=== PATIENT | female | born 1940 | race Caucasian/White ===

== ENCOUNTER → 2016-11-18 | Outpatient (CLI) | payer MEDICARE ==
[~2016-11-18] MED LIST: ACETAM PO; ALLOPURINOL100 MG PO; BACITRACIN OIN TP; BENADRYL ALLERG25 M1 PO; CLOTRIMAZOLE 1%15 GM TP; DILAUDID2 MG PO; DIPHENOX/ATROPI1 TAB PO; HCTZ/LISINOPRIL1 TA3 PO; ISOSORBIDE DINI30 MG PO; KEFLEX 500MG.500 MG PO; LEVOTHYROXINE0.05 MG PO; LOMOTIL 0.025 M1 TAB OR; LOMOTIL 2.5MG.2.5 MG PO; LORTAB 5/500 501 TAB PO; LOVASTATIN40 MG PO; OMNICEF 300 MG300 MG PO; ONDANSETRON 4MG4 M1 PO; PANTOPRAZOLE SO20 MG PO; PRINIVIL10 MG PO; TRAMADOL 50MG T50 MG PO; TRAMADOL PO; TRAZODONE 50MG50 MG PO; XYLOCAINE2% TP; ZOFRAN4 MG PO
--- NOTE | 2016-11-23 20:25 | RADIOLOGY REPORT PS360 ---
DIG MAMM-SCREEN JOSE ANTONIO W/CAD CAD Screening COMPARISON: Digital mammograms 02/17/2016 and postbiopsy specimen radiographs 05/06/2016 INDICATION: There is no personal or family history of breast cancer. 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 R2 CAD reviewed. FINDINGS: Moderate diffuse scattered fibroglandular densities are seen throughout both breasts. There are multiple surgical clips lower inner quadrant left breast with mild post lumpectomy scarring noted. There are multiple scattered benign-appearing calcifications in both breasts along with arterial calcification in each breast as well. There is no suspicious lesion and there are no suspicious microcalcifications. IMPRESSION: Moderate diffuse breast density with no suspicious lesion seen recommend yearly follow-up BI-RADS CATEGORY: 2_Benign RECOMMENDED FOLLOWUP: 12M 12 MONTH FOLLOW-UP (A letter has been sent to the patient regarding results of the study.)
== END ==
LOC: RAD 15:46
DX: N60.89 Other benign mammary dysplasias of unspecified breast (principal); Z12.31 Encounter for screening mammogram for malignant neoplasm of breast
CPT/HCPCS: G0202

== ENCOUNTER → 2016-12-30 | Outpatient (CLI) | payer MEDICARE ==
--- NOTE | 2016-12-30 11:24 | RADIOLOGY REPORT PS360 ---
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 No fracture or dislocation. No orthopedic complication. Good alignment of the prosthesis. IMPRESSION: Status post total knee replacement, no acute finding
--- NOTE | 2016-12-30 11:24 | RADIOLOGY REPORT PS360 ---
[id number] VIEWS HISTORY: Pain following injury FALL 2 MONTHS AGO,RT SHOULDER PAIN,RT KNEE PAIN ORDERING PHYSICIAN: Jean Serrano MD PATIENT AGE: 76 years COMPARISON: None FINDINGS: There are mild osteoarthritic changes of the acromioclavicular joint and mild subacromial stenosis. No acute fracture or dislocation. There are minimal hypertrophic changes along the greater tuberosity. There is severe subacromial stenosis which may result in impingement symptomatology upon the rotator cuff. IMPRESSION: 1. No acute fracture. 2. Osteoarthritic change with subacromial stenosis which may result in rotator cuff abnormalities and may be better evaluated with MRI if clinically warranted
== END ==
LOC: RAD 10:39
DX: M25.511 Pain in right shoulder (principal); M25.562 Pain in left knee

== ENCOUNTER → 2017-01-25 | Outpatient (CLI) | payer MEDICARE ==
[2017-01-25 11:35] LABS: HEMOGLOBIN 12.4 g/dL (12.2-16.2); LYMPH # 2.5 K/mm3 (0.7-4.5); LYMPH % 31.8 % (10-50.0)
[2017-01-25 14:06] LABS: BUN 24 mg/dL (7-18)
[2017-01-25 14:13] LABS: GFR (ESTIMATED) 29 ML/MIN (59-)
== END ==
LOC: LAB 11:21
PROVIDERS: Internal Medicine
DX: N18.3 Chronic kidney disease, stage 3 (moderate) (principal); G89.29 Other chronic pain; I10 Essential (primary) hypertension